=== PATIENT | male | born 1940 | race Caucasian/White ===

== ENCOUNTER 2021-12-30 20:25 | Inpatient (IN) | payer MEDICARE ==
[~2021-12-30] VITALS: Ht 190.5 cm; Wt 74.8 kg
[2021-12-30 20:57] LABS: BASOPHILS % (AUTO) 0.5 % (0.0-5.0); EOSINOPHILS % (AUTO) 0.2 % (0.0-8.0); HEMATOCRIT 41.2 % (42-54); LYMPHOCYTES % (AUTO) 3.9 % (21.0-51.0); MEAN CORPUSCULAR HEMOGLOBIN 28.6 pg (27.0-33.0); MEAN CORPUSCULAR HGB CONC 31.8 g/dL (32.0-36.0); MONOCYTES % (AUTO) 4.3 % (3.0-13.0); NEUTROPHILS % (AUTO) 90.1 % (40.0-77.0); PLATELET COUNT (AUTO) 407 K/uL (130-400); RED BLOOD CELL COUNT(AUTO) 4.58 MIL/uL (4.50-6.20); RED CELL DISTRIBUTION WIDTH 18.4 % (11.0-15.5); WHITE BLOOD COUNT (AUTO) 13.2 K/uL (4.8-10.8)
[2021-12-30 21:00] LABS: APPEARANCE,URINE CLEAR (CLEAR); BILIRUBIN,URINE NEGATIVE (NEGATIVE); COLOR,URINE YELLOW (YELLOW); GLUCOSE, URINE (UA) NEGATIVE (NEGATIVE); KETONES,URINE NEGATIVE (NEGATIVE); LEUKOCYTE ESTERASE ,URINE NEGATIVE Leu/uL (NEGATIVE); NITRATE,URINE NEGATIVE (NEGATIVE); PROTEIN,URINE 20 mg/dL (NEGATIVE); UROBILINOGEN,URINE 0.2 mg/dL (0.2-1.0)
[2021-12-30 21:06] LABS: INR 1.31 (0.85-1.15); PROTHROMBIN TIME 14.1 SEC (9.6-11.6)
[2021-12-30 21:07] LABS: CREATININE 1.2 mg/dL (0.5-1.5); POTASSIUM 4.2 mmol/L (3.5-5.1)
[2021-12-30 21:14] LABS: ALBUMIN 2.1 g/dL (3.5-5.0); MAGNESIUM 1.9 mg/dL (1.80-2.40); TOTAL PROTEIN, SERUM 8.1 g/dL (6.0-8.3)
[2021-12-30 21:22] LABS: BACTERIA,URINE RARE /HPF (None Seen); MUCUS,URINE RARE LPF (None Seen); SQUAMOUS EPITHELIAL CELL,UR RARE /HPF (0-2)
[2021-12-30 21:28] LABS: B-TYPE NATRIURETIC PEPTIDE 539 pg/mL (0-100)
[2021-12-30] MEDS ORDERED: FUROSEMIDE 40MG VIAL IV ONE (21:30)
[2021-12-31] MEDS ORDERED: MORPHINE 4 MG SYG IV PRN (03:00)
[2021-12-31] MEDS ORDERED: ONDANSETRON 4MG INJ IV PRN (03:00)
[2021-12-31] MEDS: DOXYCYCLINE 100MG+NS 250ML 250 ML IV SCH ×2 (03:12→14:47)
[2021-12-31] MEDS: CEFTRIAXONE 1G VIAL IV SCH (03:15)
[2021-12-31 03:35] VITALS: BP 131/73
[2021-12-31 04:05] VITALS: BP 131/73
[2021-12-31] MEDS ORDERED: UBID100C10 PO (04:16)
[2021-12-31] MEDS ORDERED: AUD IH (04:16)
[2021-12-31] MEDS ORDERED: SPIR25TA6 PO ×2 (04:16)
[2021-12-31] MEDS ORDERED: LORA2ORA PO (04:16)
[2021-12-31] MEDS ORDERED: MIRT-22 PO (04:16)
[2021-12-31] MEDS ORDERED: FLUT1BLS9 IH (04:16)
[2021-12-31] MEDS ORDERED: METO-391 PO (04:16)
[2021-12-31] MEDS ORDERED: CLOP75TA32 PO (04:16)
[2021-12-31] MEDS ORDERED: ELTR25TA PO (04:16)
[2021-12-31] MEDS ORDERED: METO25TA6 PO (04:16)
[2021-12-31] MEDS ORDERED: FURO20TA4 PO (04:16)
[2021-12-31] MEDS ORDERED: LOSA100T58 PO ×2 (04:16)
[2021-12-31] MEDS ORDERED: TAMS-1 PO (04:16)
[2021-12-31 08:00] VITALS: BP 117/76
[2021-12-31] MEDS ORDERED: ALBUTEROL 0.083% 2.5 MG/3 ML INH IH PRN (08:30)
[2021-12-31] MEDS: FLUTICASONE/VILANTEROL 1 EACH AER.POW.BA IH SCH (09:00)
[2021-12-31] MEDS ORDERED: ELTROMBOPAG OLAMINE 25 MG PO SCH (09:00)
[2021-12-31] MEDS ORDERED: METOPROLOL SUCCINATE 50 MG TAB.SR.24H PO SCH (09:00)
[2021-12-31] MEDS: FUROSEMIDE 40MG VIAL IVP SCH ×2 (09:07→21:51)
[2021-12-31] MEDS: FAMOTIDINE 20MG TAB PO SCH (09:07)
[2021-12-31] MEDS: ENOXAPARIN SODIUM 40 MG/0.4 ML SYRINGE SQ SCH (09:07)
[2021-12-31] MEDS: MORPHINE 2 MG SYG IV PRN ×3 (09:18→23:59)
[2021-12-31] MEDS ORDERED: MORPHINE (10:44)
[2021-12-31 11:21] VITALS: BP 112/62
[2021-12-31] MEDS: SPIRONOLACTONE 25 MG TAB PO SCH ×2 (12:08→21:51)
[2021-12-31] MEDS: CLOPIDOGREL 75MG TAB PO SCH (12:08)
[2021-12-31] MEDS: CARVEDILOL 6.25 MG TABLET PO SCH ×2 (12:09→21:00)
[2021-12-31] MEDS: SACUBITRIL/VALSARTAN 1 EACH TABLET PO SCH (12:09)
[2021-12-31] MEDS ORDERED: BENZOCAINE/MENTH/CETYLPYRD CL 1 EACH LOZENGE MM PRN (12:30)
[2021-12-31] MEDS ORDERED: PHARMACY COMMUNICATION MISC SCH (13:30)
[2021-12-31] MEDS ORDERED: HEMORRHOIDAL OINTMENT 57 GM CREAM.GM. RC PRN (14:00)
[2021-12-31 16:00] VITALS: BP 96/60
[2021-12-31] MEDS ORDERED: IPRATROPIUM/ALBUTEROL SULFATE 3 ML SOLUTION IH PRN (17:00)
[2021-12-31 20:25] VITALS: BP 103/62
[2021-12-31] MEDS: HOME MEDICATION 1 EACH PO SCH (21:00)
[2021-12-31] MEDS: TAMSULOSIN HCL 0.4 MG CAP.ER.24H PO SCH (21:52)
[2021-12-31] MEDS: MIRTAZAPINE 15 MG TABLET PO SCH (21:52)
[2022-01-01] VITALS (8 sets, daily range): BP systolic 87–118; BP diastolic 57–80
[2022-01-01] MEDS: CEFTRIAXONE 1G VIAL IV SCH (02:32)
[2022-01-01] MEDS: DOXYCYCLINE 100MG+NS 250ML 250 ML IV SCH ×2 (02:32→14:48)
[2022-01-01 05:48] LABS: BASOPHILS % (AUTO) 0.4 % (0.0-5.0); EOSINOPHILS % (AUTO) 0.7 % (0.0-8.0); HEMATOCRIT 43.6 % (42-54); LYMPHOCYTES % (AUTO) 5.8 % (21.0-51.0); MEAN CORPUSCULAR HEMOGLOBIN 28.5 pg (27.0-33.0); MEAN CORPUSCULAR HGB CONC 31.2 g/dL (32.0-36.0); MEAN CORPUSCULAR VOLUME 91.2 fL (79-99); MONOCYTES % (AUTO) 6.3 % (3.0-13.0); PLATELET COUNT (AUTO) 407 K/uL (130-400); RED BLOOD CELL COUNT(AUTO) 4.78 MIL/uL (4.50-6.20); RED CELL DISTRIBUTION WIDTH 18.6 % (11.0-15.5); WHITE BLOOD COUNT (AUTO) 10.9 K/uL (4.8-10.8)
[2022-01-01 06:12] LABS: CREATININE 1.1 mg/dL (0.5-1.5); MAGNESIUM 1.8 mg/dL (1.80-2.40); PHOSPHORUS 3.5 mg/dL (2.5-4.9)
[2022-01-01] MEDS ORDERED: MAGNESIUM 2GM PREMIX 50ML 50 ML IV ONE (06:26)
[2022-01-01] MEDS ORDERED: MAGNESIUM 2GM PREMIX 50ML 50 ML IV PRN (06:30)
[2022-01-01] MEDS: FLUTICASONE/VILANTEROL 1 EACH AER.POW.BA IH SCH (09:00)
[2022-01-01] MEDS: ENOXAPARIN SODIUM 40 MG/0.4 ML SYRINGE SQ SCH (09:02)
[2022-01-01] MEDS: SACUBITRIL/VALSARTAN 1 EACH TABLET PO SCH (09:03)
[2022-01-01] MEDS: FAMOTIDINE 20MG TAB PO SCH (09:03)
[2022-01-01] MEDS: FUROSEMIDE 40MG VIAL IVP SCH ×3 (09:03→20:04)
[2022-01-01] MEDS: CARVEDILOL 6.25 MG TABLET PO SCH (09:04)
[2022-01-01] MEDS: SPIRONOLACTONE 25 MG TAB PO SCH ×2 (09:04→20:06)
[2022-01-01] MEDS: CLOPIDOGREL 75MG TAB PO SCH (09:04)
[2022-01-01] MEDS: ACETAMINOPHEN 325 MG TAB PO PRN (20:05)
[2022-01-01] MEDS: CARVEDILOL 3.125 MG TABLET PO SCH (20:06)
[2022-01-01] MEDS: MIRTAZAPINE 15 MG TABLET PO SCH (20:06)
[2022-01-01] MEDS: TAMSULOSIN HCL 0.4 MG CAP.ER.24H PO SCH (20:06)
[2022-01-01] MEDS: HOME MEDICATION 1 EACH PO SCH (21:00)
[2022-01-02] MEDS: DOXYCYCLINE 100MG+NS 250ML 250 ML IV SCH ×2 (03:26→15:03)
[2022-01-02] MEDS: CEFTRIAXONE 1G VIAL IV SCH (03:26)
[2022-01-02 04:01] LABS: HEMATOCRIT 46.9 % (42-54); MEAN CORPUSCULAR HEMOGLOBIN 28.2 pg (27.0-33.0); MEAN CORPUSCULAR HGB CONC 30.7 g/dL (32.0-36.0); MEAN CORPUSCULAR VOLUME 91.8 fL (79-99); RED BLOOD CELL COUNT(AUTO) 5.11 MIL/uL (4.50-6.20); RED CELL DISTRIBUTION WIDTH 19.3 % (11.0-15.5)
[2022-01-02 04:04] LABS: CREATININE 1.2 mg/dL (0.5-1.5); MAGNESIUM 2.1 mg/dL (1.80-2.40); POTASSIUM 4.2 mmol/L (3.5-5.1)
[2022-01-02 04:20] VITALS: BP 98/51
[2022-01-02 07:25] LABS: ABG BASE EXCESS 1.8 mmol/L (-2.0-3.0); ABG HCO3 25.7 mmol/L (21.0-28.0); ABG OXYGEN SATURATION 96.1 % (95.0-99.0); ABG PCO2 38 mmHg (35-48)
[2022-01-02 08:00] VITALS: BP 101/68
[2022-01-02] MEDS: CARVEDILOL 3.125 MG TABLET PO SCH ×2 (08:39→20:16)
[2022-01-02] MEDS: FAMOTIDINE 20MG TAB PO SCH (08:40)
[2022-01-02] MEDS: CLOPIDOGREL 75MG TAB PO SCH (08:40)
[2022-01-02] MEDS: ENOXAPARIN SODIUM 40 MG/0.4 ML SYRINGE SQ SCH (08:41)
[2022-01-02] MEDS: LIDOCAINE 5% TOPICAL PATCH TP SCH (08:42)
[2022-01-02] MEDS: FUROSEMIDE 40MG VIAL IVP SCH ×2 (08:43→20:14)
[2022-01-02] MEDS: SPIRONOLACTONE 25 MG TAB PO SCH (08:43)
[2022-01-02] MEDS: ACETAMINOPHEN 325 MG TAB PO PRN (08:56)
[2022-01-02] MEDS: FLUTICASONE/VILANTEROL 1 EACH AER.POW.BA IH SCH (08:57)
[2022-01-02 13:27] VITALS: BP 88/48
[2022-01-02 16:00] VITALS: BP 105/60
[2022-01-02] MEDS: ZOSYN 3.375GM +NS 50ML IV SCH (17:18)
[2022-01-02] MEDS ORDERED: FLUCONAZOLE 200 MG/NS 100 ML 100 ML IV SCH (17:30)
[2022-01-02 20:00] VITALS: BP 115/61
[2022-01-02] MEDS: FLUCONAZOLE 200 MG/NS 100 ML 100 ML IV SCH (20:14)
[2022-01-02] MEDS: TAMSULOSIN HCL 0.4 MG CAP.ER.24H PO SCH (20:15)
[2022-01-02] MEDS: MIRTAZAPINE 15 MG TABLET PO SCH (20:15)
[2022-01-02] MEDS: HOME MEDICATION 1 EACH PO SCH (20:16)
[2022-01-03] VITALS (8 sets, daily range): BP systolic 85–146; BP diastolic 49–75
[2022-01-03] MEDS: ZOSYN 3.375GM +NS 50ML IV SCH ×3 (01:13→18:04)
[2022-01-03] MEDS: CARVEDILOL 3.125 MG TABLET PO SCH ×2 (08:28→20:29)
[2022-01-03] MEDS: FAMOTIDINE 20MG TAB PO SCH (08:29)
[2022-01-03] MEDS: LIDOCAINE 5% TOPICAL PATCH TP SCH (08:29)
[2022-01-03] MEDS: CLOPIDOGREL 75MG TAB PO SCH (08:29)
[2022-01-03] MEDS: ENOXAPARIN SODIUM 40 MG/0.4 ML SYRINGE SQ SCH (08:29)
[2022-01-03] MEDS: FLUTICASONE/VILANTEROL 1 EACH AER.POW.BA IH SCH (08:30)
[2022-01-03] MEDS: FUROSEMIDE 40MG VIAL IVP SCH ×2 (08:30→20:29)
[2022-01-03] MEDS: SPIRONOLACTONE 25 MG TAB PO SCH (08:30)
[2022-01-03] MEDS: MORPHINE 2 MG SYG IV PRN (08:41)
[2022-01-03] MEDS ORDERED: FLUCONAZOLE 200 MG/NS 100 ML 100 ML IV SCH (09:00)
[2022-01-03] MEDS: SACUBITRIL/VALSARTAN 1 EACH TABLET PO SCH ×2 (10:00→21:00)
[2022-01-03] MEDS ORDERED: TRAMADOL HCL 50 MG TABLET PO PRN ×2 (12:30)
[2022-01-03] MEDS: ACETAMINOPHEN 325 MG TAB PO PRN (12:31)
[2022-01-03] MEDS: HOME MEDICATION 1 EACH PO SCH ×2 (20:24→20:40)
[2022-01-03] MEDS: TAMSULOSIN HCL 0.4 MG CAP.ER.24H PO SCH (20:29)
[2022-01-03] MEDS: MIRTAZAPINE 15 MG TABLET PO SCH (20:29)
[2022-01-03] MEDS: FLUCONAZOLE 200 MG/NS 100 ML 100 ML IV SCH (20:30)
[2022-01-04] VITALS: BP 119/61
[2022-01-04] MEDS: ZOSYN 3.375GM +NS 50ML IV SCH ×3 (00:33→15:54)
[2022-01-04 04:00] VITALS: BP 119/63
[2022-01-04 08:00] VITALS: BP 119/73
[2022-01-04 08:10] LABS: BASOPHILS % (AUTO) 0.8 % (0.0-5.0); EOSINOPHILS % (AUTO) 1.3 % (0.0-8.0); LYMPHOCYTES % (AUTO) 7.9 % (21.0-51.0); MEAN CORPUSCULAR HEMOGLOBIN 28.1 pg (27.0-33.0); MEAN CORPUSCULAR HGB CONC 30.2 g/dL (32.0-36.0); MEAN CORPUSCULAR VOLUME 93.2 fL (79-99); MONOCYTES % (AUTO) 5.7 % (3.0-13.0); NEUTROPHILS % (AUTO) 83.6 % (40.0-77.0); PLATELET COUNT (AUTO) 483 K/uL (130-400); RED BLOOD CELL COUNT(AUTO) 5.58 MIL/uL (4.50-6.20); RED CELL DISTRIBUTION WIDTH 19.3 % (11.0-15.5)
[2022-01-04 08:23] LABS: CREATININE 1.2 mg/dL (0.5-1.5); MAGNESIUM 2.1 mg/dL (1.80-2.40); PHOSPHORUS 4.2 mg/dL (2.5-4.9)
[2022-01-04] MEDS: SPIRONOLACTONE 25 MG TAB PO SCH (08:26)
[2022-01-04] MEDS: CARVEDILOL 3.125 MG TABLET PO SCH (08:27)
[2022-01-04] MEDS: FAMOTIDINE 20MG TAB PO SCH (08:27)
[2022-01-04] MEDS: FUROSEMIDE 40MG VIAL IVP SCH (08:27)
[2022-01-04] MEDS: CLOPIDOGREL 75MG TAB PO SCH (08:27)
[2022-01-04] MEDS: LIDOCAINE 5% TOPICAL PATCH TP SCH (08:28)
[2022-01-04] MEDS: ENOXAPARIN SODIUM 40 MG/0.4 ML SYRINGE SQ SCH (08:28)
[2022-01-04] MEDS: FLUTICASONE/VILANTEROL 1 EACH AER.POW.BA IH SCH (08:28)
[2022-01-04 08:42] LABS: B-TYPE NATRIURETIC PEPTIDE 285 pg/mL (0-100)
[2022-01-04 12:00] VITALS: BP 97/58
[2022-01-04] MEDS ORDERED: ACETAZOLAMIDE SODIUM 500 MG VIAL IV SCH (13:00)
[2022-01-04 16:00] VITALS: BP 103/65
[2022-01-04] MEDS ORDERED: BUMETANIDE 1 MG TAB PO SCH ×2 (21:00)
[2022-01-05] MEDS ORDERED: DRONABINOL 2.5 MG CAP PO SCH (09:00)
[2022-01-05] MEDS ORDERED: AcetaZOLAMIDE 250 MG TAB PO SCH (09:00)
== END 2022-01-04 17:30 | disposition hospice, inpatient (51) | DRG 871 ==
LOC: EDH 20:25 → EDHIP 12-31 02:46 → 4BH 12-31 03:22 → 4CH 12-31 15:00
PROVIDERS: ADMIT Internal Medicine; ATTEND Internal Medicine
DX: A41.9 Sepsis, unspecified organism (principal); I50.43 Acute on chronic combined systolic (congestive) and diastolic (congestive) heart failure; J96.21 Acute and chronic respiratory failure with hypoxia; J44.1 Chronic obstructive pulmonary disease with (acute) exacerbation; E46 Unspecified protein-calorie malnutrition; N39.0 Urinary tract infection, site not specified; I48.91 Unspecified atrial fibrillation; I11.0 Hypertensive heart disease with heart failure; N40.0 Benign prostatic hyperplasia without lower urinary tract symptoms; Z20.822 Contact with and (suspected) exposure to COVID-19; Z66 Do not resuscitate; I50.84 End stage heart failure; I27.20 Pulmonary hypertension, unspecified; I07.1 Rheumatic tricuspid insufficiency; E78.5 Hyperlipidemia, unspecified; R54 Age-related physical debility; Z51.5 Encounter for palliative care; Z95.810 Presence of automatic (implantable) cardiac defibrillator; Z68.20 Body mass index [BMI] 20.0-20.9, adult
CPT/HCPCS: 36415; 36600; 71045; 71250; 80048; 80053; 81001; 82040; 82550; 82803; 83735; 83880; 84100; 84134; 84145; 84484; 85025; 85027; 85378; 85610; 87040; 87071; 87077; 87088; 87186; 87205; 87635; 87804; 93005; 93306; 93970; 94660; 94664; 94760; 97039; A4606; C9803; G0378; J0696; J1120; J1450; J1650; J1940; J2270; J2543; J3475; J3490